=== PATIENT | female | born 1965 | race Caucasian/White ===

== ENCOUNTER 2019-05-19 21:51 | Emergency (ER) | payer BC ==
[~2019-05-19] VITALS: Ht 180.3 cm; Wt 80.1 kg
[~2019-05-19 21:51] MED LIST: CYCL10TA7 PO; NAPR-985 PO
[2019-05-19 21:59] VITALS: Ht 180.3 cm; Wt 80.1 kg
[2019-05-19] MEDS ORDERED: HYDROCODONE/APAP (5/325) TAB PO ONE (23:00)
[2019-05-19] MEDS ORDERED: KETOROLAC 30 MG INJ IM STA (23:05)
[2019-05-19] MEDS ORDERED: DEXAMETHASONE 10 MG/ML 1 ML INJ IM ONE (23:30)
[2019-05-20] MEDS ORDERED: NICARDipine HCL 30 MG CAPSULE PO ONE (00:30)
[2019-05-20 01:07] VITALS: BP 157/93; PULSE 77; RESP 17
== END 2019-05-20 01:25 | disposition home or self-care (01) ==
LOC: FTE 21:51
DX: M54.5 Low back pain (principal)
CPT/HCPCS: 96372; J1100; J1885; Z7502; Z7610